=== PATIENT | male | born 1990 | race Caucasian/White ===

== ENCOUNTER 2022-03-29 14:51 | Emergency (ER) | payer MEDICAID, SELFPAY ==
--- NOTE | ~2022-03-29 | US_ITS ---
US/US venous duplex LE IMPRESSION: No DVT demonstrated in the bilateral lower extremities. EXAMINATION: US VENOUS ULTRASOUND WITH DOPPLER LOWER EXTREMITY, BILATERAL CLINICAL INFORMATION: Swelling COMPARISON: None TECHNIQUE: Ultrasound of the deep veins is performed from the hip to the calf with compression sonography and color and pulse Doppler assessment. Spectral analysis with color-flow imaging is performed. FINDINGS: RIGHT: There is normal venous compression and respiratory variation and augmented flow. The visualized common femoral vein, superficial femoral vein, profunda femoral vein, popliteal vein, and the trifurcation region shows no evidence of deep venous thrombosis. There is no significant popliteal fossa cyst. LEFT: There is normal venous compression and respiratory variation and augmented flow. The visualized common femoral vein, superficial femoral vein, profunda femoral vein, popliteal vein, and the trifurcation region shows no evidence of deep venous thrombosis. There is no significant popliteal fossa cyst. If the patient's symptoms persist, followup ultrasound in 5 days 7 days might be of value to exclude proximal propagation from a non-visualized calf vein.
[2022-03-29 15:21] VITALS: BP 138/72; PULSE 70; RESP 18; TEMP 37.2; O2SAT 97; BMI 24.2
[2022-03-29 18:20] LABS: MANUAL DIFF FLAG NO
[2022-03-29 18:21] LABS: Appearance Urine Clear; Color Urine Yellow; Glucose Urine UA Negative (Negative); Leukocyte Esterase Urine Negative (Negative); Nitrite Urine Negative (Negative); PH 6.5 (5.0-8.0); Urine Blood Negative (Negative); Urine Ketones Negative (Negative); Urine Protein Negative (Neg-Trace)
[2022-03-29 18:41] LABS: Alanine Aminotransferase 32 U/L (0-40); Albumin Level 4.1 g/dL (3.5-5.0); Alkaline Phosphatase 94 U/L (39-117); Anion Gap 13 (12-20); Aspartate Amino Transferase 26 U/L (5-37); Bilirubin Total 0.4 mg/dL (0.0-1.0); Blood Urea Nitrogen 18 mg/dL (9-16); Calcium 9.6 mg/dL (8.4-10.2); Carbon Dioxide 31 mmol/L (22-29); Chloride 100 mmol/L (96-108); Creatinine Clr Calc Pharmacy 116.1; Estimated Glomerular Filt Rate > 60; Glucose Random 87 mg/dL (60-115); Sodium 140 mmol/L (135-145)
[2022-03-29 18:47] LABS: B Type Natriuretic Peptide < 10 pg/mL (<100); Basophils Percent Auto 0.4 % (0-2); Eosinophils Absolute Auto 0.1 X10*3/uL (0.0-0.4); Eosinophils Percent Auto 1.7 % (0-4); Hemoglobin 14.1 g/dl (14.0-18.0); Imm Gran Abs Auto 0.04 X10*3/uL (0.00-0.03); Imm Gran Pct Auto 0.6 % (0.0-0.4); Lymphocytes Absolute Auto 2.9 X10*3/uL (1.2-4.9); Lymphocytes Percent Auto 41.6 % (20-40); Mean Corpuscular HGB Conc 34.4 g/dl (31.0-36.0); Mean Corpuscular Hemoglobin 29.8 pg (27.0-33.0); Mean Corpuscular Volume 86.7 fL (80.0-98.0); Mean Platelet Volume 10.1 fL (9.4-12.4); Monocytes Absolute Auto 0.5 X10*3/uL (0.1-1.2); Monocytes Percent Auto 6.4 % (2-11); Neutrophils Absolute Auto 3.5 x10*3/uL (2.0-8.3); Neutrophils Percent Auto 49.3 % (45-73); Platelet Count 163 X10*3/uL (160-400); Red Blood Count 4.73 X10*6/uL (4.60-5.80); Red Cell Distribution Width 13.6 % (11.0-16.0); Troponin-I High Sensitivity 3.8 ng/L (<3.5-35.0)
== END 2022-03-29 19:36 | disposition left against medical advice (07) ==
PROVIDERS: Emergency Provider Emergency Medicine
DX: R60.0 Localized edema (principal); R06.02 Shortness of breath; Z79.899 Other long term (current) drug therapy
CPT/HCPCS: 36415; 80053; 81003; 83880; 84484; 85025; 93970; 99282; 99284

== ENCOUNTER 2022-04-07 10:23 | Emergency (ER) | payer MEDICAID, SELFPAY ==
--- NOTE | ~2022-04-07 | US_ITS ---
EXAMINATION: US VENOUS ULTRASOUND WITH DOPPLER LOWER EXTREMITY, BILATERAL CLINICAL INFORMATION: Lower extremity edema COMPARISON: Previous venous ultrasound most recent 03/29/2022 TECHNIQUE: Ultrasound of the deep veins is performed from the hip to the calf with compression sonography and color and pulse Doppler assessment. Spectral analysis with color-flow imaging is performed. FINDINGS: RIGHT: There is normal venous compression and respiratory variation and augmented flow. The visualized common femoral vein, superficial femoral vein, profunda femoral vein, popliteal vein, and the trifurcation region shows no evidence of deep venous thrombosis. There is no significant popliteal fossa cyst. LEFT: There is normal venous compression and respiratory variation and augmented flow. The visualized common femoral vein, superficial femoral vein, profunda femoral vein, popliteal vein, and the trifurcation region shows no evidence of deep venous thrombosis. There is no significant popliteal fossa cyst. US/US venous duplex LE BI IMPRESSION: No DVT demonstrated in the bilateral lower extremity.
[2022-04-07 10:28] VITALS: BP 115/67; PULSE 61; RESP 18; TEMP 36.8; O2SAT 99; BMI 27.2
--- NOTE | 2022-04-07 14:07 | ED_ITS ---
HPI - Extremity Problem General Chief complaint: Extremity Problem Stated complaint: edema in ankles and feet Time Seen by Provider: 04/07/22 10:33 Source: patient Mode of arrival: ambulatory Limitations: no limitations History of Present Illness HPI Narrative: 31-year-old transgender male to female with a history of substance use disorder on Suboxone, anxiety, constipation, who presents to the ER for evaluation of 6-7 days of lower extremity swelling. He reports the swelling is mostly in his ankles and feet and is worse at the end of the day. He denies any redness, warmth, pain in the back of his legs. He has never had swelling like this before. He reports only new medications are Cymbalta and perphenazine which he has been on for the last month. He denies any injury to his legs. He has been wearing compression stockings and try and elevate his legs with no improvement. He came to the emergency department for the same last week, got lab work done but as of leaving without being seen because the wait was 10 hours per the report. Patient denies recent travel, denies history of blood clots in the past. No chest pain or shortness of breath. MD Complaint: extremity swelling Onset (ago): day(s) (6) Pain Consistency: constant Location: left, right and lower extremity Severity scale (1-10): 4 Quality: aching Radiation: proximal Relieving factors: elevation and other ( compression stockings) Exacerbating factors: other ( being on feet all day) Associated symptoms: denies other symptoms Related Data Allergies Allergy/AdvReac Type Severity Reaction Status Date / Time No Known Allergies Allergy Verified 03/29/22 15:21 Review of Systems Review of Systems: Constitutional: No Fever, No Chills ENT/Mouth: No sore throat, No Rhinorrhea Cardiovascular: No Chest Pain, No SOB, No Orthopnea, +Edema Respiratory: No Cough, No Sputum, No Wheezing, No dyspnea Gastrointestinal: No Nausea, No Vomiting, No Diarrhea, No abdominal Pain Genitourinary: No Dysuria, No Urinary Frequency, No Hematuria Musculoskeletal: No joint pain, No Myalgias Skin: No Skin Lesions, No rash Neuro: No Weakness, No Numbness, No Dizziness, No Headache Psych: + Anxiety/Panic, No Depression Heme/Lymph: No Bruising, No Lymphadenopathy Endocrine: No Polyuria, No Polydipsia PMFSH Past Medical History Medical History (Updated 04/07/22 @ 15:27 by CAR Rose) Alcoholism in recovery Anxiety Depression Migraine Substance abuse in remission Umbilical hernia Social History Social History Alcohol intake: former Patient Tobacco Use Status: Never used Tobacco Use of substances other than those prescribed or required for medical reasons: Yes Substance Use Type: Marijuana Substance Use Frequency: Daily Advance Directives: No Advance Directives Information Provided: No Physical Exam Vital Signs: Vital Signs: Last Vital Signs Temp 98.3 F 04/07/22 15:22 Pulse 56 04/07/22 15:22 Resp 18 04/07/22 15:22 BP 139/75 04/07/22 15:22 Pulse Ox 98 04/07/22 15:22 O2 Del Method 04/07/22 15:22 BMI result Body Mass Index 27.2 Appearance: Alert. Oriented X3. No acute distress. HEENT: normal inspection CVS: Normal heart rate and rhythm. Pulses normal. Respiratory: No respiratory distress. Lungs are clear throughout Skin: Skin warm and dry. Normal skin color. Normal skin turgor. No rashes. Extremities: bilateral ankles and feet with 2+ pitting edema, nontender. No erythema of the lower legs. No calf tenderness. No pretibial edema. Neuro: Oriented X 3. No motor deficit. No sensory deficit. Course Course Course Narrative: 31-year-old transgender male to not yet on hormonal therapy who presents to the ER for evaluation of 6 days of bilateral lower extremity swelling. no calf tenderness or swelling. Swelling is mostly in the ankles and feet. recently had blood work year with a BNP less than 10. Unclear etiology. Will rule out lower extremity DVT with lower extremity Dopplers today. His medication list has been reviewed and does not appear to have any medications that will cause fluid retention or lower extremity edema. Reevaluation(s) Reevaluation #1: Lower extremity Dopplers are unremarkable. No evidence of blood clot. Unclear etiology of his lower extremity edema but he has no worrisome signs or symptoms. he has a follow-up appointment with his primary care doctor next week will res ume. He will follow-up with her. He is stable for discharge home and per her precautions were discussed. Critical Care Time Critical Care Time Critical Care Time: No Discharge Plan Discharge Clinical Impression: Lower extremity edema Patient Disposition: Home, Self-Care Instructions: Leg Edema (ED) Additional Instructions: Lower extremity ultrasound was negative for blood clots. Your lab work last week was unremarkable. Recommend wearing compression stockings and elevating legs when possible. Recommend following up with your primary care doctor. If you develop new or worsening symptoms call 911 or come back to the ER for further evaluation.
[2022-04-07 14:21] VITALS: BP 121/61; PULSE 55; RESP 16; O2SAT 98
--- NOTE | 2022-04-07 15:01 | PC.NURSE ---
pt to radiology
[2022-04-07 15:22] VITALS: BP 139/75; PULSE 56; RESP 18; TEMP 36.8; O2SAT 98
--- NOTE | 2022-04-07 15:25 | PC.NURSE ---
patient a&ox3, vss, pt denies pain at this time, pt has bilateral lower extremity 3+ edema, pt requesting home medications that he doesnt have, call valle within reach, will continue to monitor.
[2022-04-07 17:16] VITALS: BP 137/68; PULSE 88; RESP 16
== END 2022-04-07 17:20 | disposition home or self-care (01) ==
PROVIDERS: Emergency Provider Emergency Medicine
DX: R60.0 Localized edema (principal)
CPT/HCPCS: 93970; 99284

== ENCOUNTER 2022-07-27 09:31 | Emergency (ER) | payer MEDICAID, SELFPAY ==
[2022-07-27 09:55] VITALS: BP 138/81; PULSE 84; RESP 20; TEMP 36.6; O2SAT 98; BMI 28.7
--- NOTE | 2022-07-27 10:12 | ED_ITS ---
HPI - General Adult General Chief complaint: General Medical Stated complaint: medical clearance Time Seen by Provider: 07/27/22 10:12 Source: patient Mode of arrival: ambulatory Limitations: no limitations History of Present Illness HPI narrative: Patient is a 32 year old assigned male at with a history of anxiety presenting to the emergency department today requesting medical clearance. Patient states that he is staying at a retirement and needs medical clearance to go back there. Patient denies any dizziness, lightheadedness, abdominal pain, nausea, vomiting, fever, chills, blurry vision, double vision, loss of vision, chest pain, difficulty breathing, shortness of breath, back pain, night sweats, pain with urination, increased urinary frequency, increased urinary urgency, blood in his urine or stool, syncope or a near syncopal episode, recent trauma or falls, bowel incontinence, bladder incontinence, bowel retention, bladder retention, or any other complaints at this time. Severity: mild Severity scale (1-10): 2 Relieving factors: none Exacerbating factors: none Associated symptoms: denies other symptoms Treatments prior to arrival: none Related Data Allergies Allergy/AdvReac Type Severity Reaction Status Date / Time No Known Allergies Allergy Verified 03/29/22 15:21 Review of Systems Constitutional: Constitutional: Reports no additional constitutional complain ts, Denies chills, Denies fever(s) and Denies night sweats Eyes: Eyes: Reports no additional eye complaints, Denies blurry vision, Denies change in vision, Denies diplopia, Denies eye discharge, Denies loss of vision and Denies eye pain ENT: Denies dizziness Cardiovascular: Cardiovascular: Reports no additional cardiovascular complaints, Denies chest pain, Denies lightheadedness, Denies Loss of Consciousness and Denies dyspnea Respiratory: Respiratory: Reports no additional respiratory complaints and De nies dyspnea Gastrointestinal: Gastrointestinal: Reports no additional gastrointestinal complaints, Denies abdominal pain, Denies melena, Denies hematochezia, Denies change in bowel habits and Denies change in stool character Genitourinary: Genitourinary: Reports no additional male genitourinary complaints, Denies hematuria, Denies oliguria, Denies difficulty urinating, Denies dysuria, Denies urinary frequency, Denies urinary hesitancy, Denies urinary incontinence and Denies urinary urgency Musculoskeletal: Musculoskeletal: Reports no additional musculoskeletal complaints, Denies numbness and Denies tingling Neurologic: Denies dizziness, Denies loss of vision, Denies numbness and Denies tingling Psychiatric: Psychiatric: Reports no additional psychiatric complaints Endocrine: Endocrine: Reports no additional endocrine complaints Hematologic/Lymphatic: Hematologic/Lymphatic: Reports no additional hematologic/lymphatic complaints Allergic/Immunologic: Allergic/Immunologic: Reports no additional allergic/immunologic complaints PMFSH Past Medical History Attestation statement: The following information was validated with the patient. Source: old records reviewed and nursing notes reviewed Medical History Alcoholism in recovery Anxiety Depression Migraine Substance abuse in remission Umbilical hernia Social History Social History Alcohol intake: former Patient Tobacco Use Status: Never used Tobacco Substance Use Type: Marijuana Advance Directives: No Advance Directives Information Provided: No Physical Exam ED Vital Signs: Vital Signs - 24 hr 07/27/22 09:55 07/27/22 10:22 Temperature 97.8 F 98.4 F Pulse Rate 84 73 Respiratory Rate 20 16 Blood Pressure 138/81 117/72 Pulse Oximetry 98 97 Oxygen Delivery Method Room Air Room Air BMI result Body Mass Index 28.7 Const General: cooperative, no acute distress, alert and awake Nutritional Appearance: well nourished Orientation/consciousness: patient oriented x3 Limitations: no limitations HENMT Head: Yes normal to inspection and Yes atraumatic Ears: hearing grossly normal bilaterally and external ears normal General nose exam: Normal external nose present, no nasal discharge noted and no epistaxis Face and sinus: Yes normal facial exam, No abrasion and No laceration Mouth: Normal oral and palatal mucosa present, no drooling and no muffled voice Eyes General: appearance normal, both eyes and all related structures Periorbital: periorbital findings normal Eyelids: Yes eyelids normal Conjunctivae: conjunctivae normal Pupils: Equal, round and reactive pupils present EOM: EOMs intact bilaterally Neck Neck: Yes normal visual inspection, Yes full ROM and Yes no lymphadenopathy Chest Chest palpation & inspection: normal inspection of the chest Resp Effort & Inspection: normal respiratory effort and able to speak in complete sentences Auscultation: clear to auscultation bilaterally Cardio Rate: regular rate Rhythm: regular rhythm GI Inspection: Yes normal to inspection Palpation (GI): Soft to palpation, not firm, nontender and no guarding Neuro General: patient oriented x3 and moves all extremities Cranial nerves: Yes Equal, round and reactive pupils present Cognition (Neuro): normal cognition Motor exam (neuro): 5/5 motor strength present throughout Sensory Exam: Normal double simultaneous stimulation for sensation Coordination: [id number] test normal Extrem General: Yes normal to inspection, Yes full ROM and Yes capillary refill normal Psych Appearance: grossly normal Mental Status: mental status grossly normal Affect: normal affect Attitude: cooperative Thought process: Normal thought process present Thought content: Normal thought content present Insight: Good insight present (Psych) Medical Decision Making Medical Decision Making MDM Narrative: Patient is a 32 year old assigned male at with a history of anxiety presenting to the emergency department today requesting medical clearance. Patient's physical exam was unremarkable. Patient's blood work was unremarkable. I explained my physical exam findings as well as all test results to the patient. I answered all questions asked by the patient. I stressed the importance of the patient taking his medication as prescribed. I stressed the importance of the patient following up with his primary care provider. I stressed the importance of the patient returning to the emergency department immediately if his symptoms were to worsen or if he were to develop any dizziness, shortness of breath, difficulty breathing, chest pain, blurry vision, loss of vision, nausea, vomiting, abdominal pain, fever, chills, back pain, or any other complaints. Patient verbalized agreement and understanding with this treatment plan and discharge. Differential Diagnosis Differential Diagnoses: The differential diagnosis associated with the presentation includes medical clearance Lab Data [facility] Lab Attestation statement: I reviewed the patient's lab results. Result Diagrams: 07/27/22 10:36 07/27/22 10:54 Labs: Lab Results 07/27/22 07/27/22 07/27/22 Range/Units 10:36 10:51 10:54 WBC 6.4 (4.8-10.8) X10*3/uL RBC 5.06 (4.60-5.80) X10*6/uL Hgb 13.2 L (14.0-18.0) g/dl Hct 39.9 L (42.0-52.0) % MCV 78.9 L (80.0-98.0) fL MCH 26.1 L (27.0-33.0) pg MCHC 33.1 (31.0-36.0) g/dl RDW 11.8 (11.0-16.0) % Plt Count 179 (160-400) X10*3/uL MPV 9.6 (9.4-12.4) fL Immature Gran % (Auto) 0.5 H (0.0-0.4) % Neut % (Auto) 56.4 (45-73) % Lymph % (Auto) 34.0 (20-40) % [place] % (Auto) 6.9 (2-11) % Eos % (Auto) 2.0 (0-4) % Baso % (Auto) 0.2 (0-2) % Lymph # (Auto) 2.2 (1.2-4.9) X10*3/uL [place] # (Auto) 0.4 (0.1-1.2) X10*3/uL Eos # (Auto) 0.1 (0.0-0.4) X10*3/uL Baso # (Auto) 0.0 (0.0-0.2) X10*3/uL Abs Immat Gran (auto) 0.03 (0.00-0.03) X10*3/uL Absolute Neuts (auto) 3.6 (2.0-8.3) x10*3/uL Absolute Nucleated RBC 0.000 (0.0-0.012) X10*3/uL Nucleated RBC % (auto) 0.0 (0.0-0.2) /100WBC Sodium (135-145) mmol/L Potassium (3.3-5.1) mmol/L Chloride (96-108) mmol/L Carbon Dioxide (22-29) mmol/L Anion Gap (12-20) BUN (9-16) mg/dL Creatinine (0.5-1.4) mg/dL Estim Creat Clear Calc Estimated GFR Random Glucose (60-115) mg/dL Calcium (8.4-10.2) mg/dL Total Bilirubin (0.0-1.0) mg/dL AST (5-37) U/L ALT (0-40) U/L Alkaline Phosphatase (39-117) U/L Total Protein (6.5-8.0) g/dL Albumin (3.5-5.0) g/dL Urine Color Yellow Urine Appearance Clear Urine pH 7.5 (5.0-9.0) Ur Specific [place] 1.015 (1.005-1.025) Urine Protein Negative (Neg-Trace) mg/dL Urine Glucose (UA) Negative (Negative) mg/dL Urine Ketones Negative (Negative) mg/dL Urine Blood Negative (Negative) Urine Nitrite Negative (Negative) Ur Leukocyte Esterase Negative (Negative) Urine Opiates Screen Not Detected (Not Detect) Urine Fentanyl Screen Not Detected (Not Detect) Ur Barbiturates Screen Not Detected (Not Detect) Ur Phencyclidine Scrn Not Detected (Not Detect) Ur Amphetamines Screen Not Detected (Not Detect) U Benzodiazepines Scrn Not Detected (Not Detect) Urine Cocaine Screen Not Detected (Not Detect) U Marijuana (THC) Screen Not Detected (Not Detect) 07/27/22 Range/Units 10:54 WBC (4.8-10.8) X10*3/uL RBC (4.60-5.80) X10*6/uL Hgb (14.0-18.0) g/dl Hct (42.0-52.0) % MCV (80.0-98.0) fL MCH (27.0-33.0) pg MCHC (31.0-36.0) g/dl RDW (11.0-16.0) % Plt Count (160-400) X10*3/uL MPV (9.4-12.4) fL Immature Gran % (Auto) (0.0-0.4) % Neut % (Auto) (45-73) % Lymph % (Auto) (20-40) % [place] % (Auto) (2-11) % Eos % (Auto) (0-4) % Baso % (Auto) (0-2) % Lymph # (Auto) (1.2-4.9) X10*3/uL [place] # (Auto) (0.1-1.2) X10*3/uL Eos # (Auto) (0.0-0.4) X10*3/uL Baso # (Auto) (0.0-0.2) X10*3/uL Abs Immat Gran (auto) (0.00-0.03) X10*3/uL Absolute Neuts (auto) (2.0-8.3) x10*3/uL Absolute Nucleated RBC (0.0-0.012) X10*3/uL Nucleated RBC % (auto) (0.0-0.2) /100WBC Sodium 137 (135-145) mmol/L Potassium 4.5 (3.3-5.1) mmol/L Chloride 103 (96-108) mmol/L Carbon Dioxide 27 (22-29) mmol/L Anion Gap 12 (12-20) BUN 14 (9-16) mg/dL Creatinine 0.95 (0.5-1.4) mg/dL Estim Creat Clear Calc 127.6 Estimated GFR > 60 Random Glucose 101 (60-115) mg/dL Calcium 9.2 (8.4-10.2) mg/dL Total Bilirubin 0.4 (0.0-1.0) mg/dL AST 17 (5-37) U/L ALT 22 (0-40) U/L Alkaline Phosphatase 93 (39-117) U/L Total Protein 7.0 (6.5-8.0) g/dL Albumin 4.0 (3.5-5.0) g/dL Urine Color Urine Appearance Urine pH (5.0-9.0) Ur Specific [place] (1.005-1.025) Urine Protein (Neg-Trace) mg/dL Urine Glucose (UA) (Negative) mg/dL Urine Ketones (Negative) mg/dL Urine Blood (Negative) Urine Nitrite (Negative) Ur Leukocyte Esterase (Negative) Urine Opiates Screen (Not Detect) Urine Fentanyl Screen (Not Detect) Ur Barbiturates Screen (Not Detect) Ur Phencyclidine Scrn (Not Detect) Ur Amphetamines Screen (Not Detect) U Benzodiazepines Scrn (Not Detect) Urine Cocaine Screen (Not Detect) U Marijuana (THC) Screen (Not Detect) Discharge Plan Discharge Clinical Impression: Encounter for medical clearance for patient hold Patient Disposition: Home, Self-Care Additional Instructions: Follow up with your primary care provider. Return to the emergency department immediately if your symptoms worsen or if you develop any dizziness, shortness of breath, difficulty breathing, chest pain, blurry vision, loss of vision, nausea, vomiting, abdominal pain, fever, chills, back pain, or any other complaints. Referrals: [facility] [place]] (Call to establish and follow up with a primary care provider. If you already have a primary care provider, please follow up with them. ) [facility] [Provider Group] (Call to establish and follow up with a primary care provider. If you already have a primary care provider, please follow up with them. ) [facility] [Provider Group] (Call to establish and follow up with a primary care provider. If you already have a primary care provider, please follow up with them. ) Stand Alone Forms: Work/School Release Interventions: ED Discharge Assessment Last Done: 07/27/22 11:57 Discharge Date/Time: 07/27/22 11:58 Print Language: Latvian
[2022-07-27 10:22] VITALS: BP 117/72; PULSE 73; RESP 16; TEMP 36.9; O2SAT 97
[2022-07-27 10:43] LABS: MANUAL DIFF FLAG NO
[2022-07-27 10:45] LABS: Basophils Percent Auto 0.2 % (0-2); Eosinophils Absolute Auto 0.1 X10*3/uL (0.0-0.4); Hematocrit 39.9 % (42.0-52.0); Hemoglobin 13.2 g/dl (14.0-18.0); Imm Gran Abs Auto 0.03 X10*3/uL (0.00-0.03); Imm Gran Pct Auto 0.5 % (0.0-0.4); Lymphocytes Absolute Auto 2.2 X10*3/uL (1.2-4.9); Mean Corpuscular HGB Conc 33.1 g/dl (31.0-36.0); Mean Corpuscular Hemoglobin 26.1 pg (27.0-33.0); Mean Corpuscular Volume 78.9 fL (80.0-98.0); Mean Platelet Volume 9.6 fL (9.4-12.4); Monocytes Absolute Auto 0.4 X10*3/uL (0.1-1.2); Monocytes Percent Auto 6.9 % (2-11); Neutrophils Absolute Auto 3.6 x10*3/uL (2.0-8.3); Neutrophils Percent Auto 56.4 % (45-73); Platelet Count 179 X10*3/uL (160-400); Red Blood Count 5.06 X10*6/uL (4.60-5.80); Red Cell Distribution Width 11.8 % (11.0-16.0); White Blood Count 6.4 X10*3/uL (4.8-10.8)
[2022-07-27 11:07] LABS: Appearance Urine Clear; Color Urine Yellow; Glucose Urine UA Negative (Negative); Leukocyte Esterase Urine Negative (Negative); Nitrite Urine Negative (Negative); PH 7.5 (5.0-9.0); Specific Gravity - Urine 1.015 (1.005-1.025); Urine Blood Negative (Negative); Urine Ketones Negative (Negative); Urine Protein Negative (Neg-Trace)
[2022-07-27 11:28] LABS: Amphetamine Screen Urine Not Detected (Not Detect); Barbiturates, Urine Not Detected (Not Detect); Benzodiazepines Screen Urine Not Detected (Not Detect); Cannabinoid Screen Urine Not Detected (Not Detect); Cocaine Screen Urine Not Detected (Not Detect); Fentanyl, urine Not Detected (Not Detect); Opiate Screen Urine Not Detected (Not Detect); Phencyclidine Screen Urine Not Detected (Not Detect)
[2022-07-27 11:39] LABS: Alanine Aminotransferase 22 U/L (0-40); Alkaline Phosphatase 93 U/L (39-117); Anion Gap 12 (12-20); Aspartate Amino Transferase 17 U/L (5-37); Bilirubin Total 0.4 mg/dL (0.0-1.0); Blood Urea Nitrogen 14 mg/dL (9-16); Calcium 9.2 mg/dL (8.4-10.2); Carbon Dioxide 27 mmol/L (22-29); Chloride 103 mmol/L (96-108); Creatinine Clr Calc Pharmacy 127.6; Estimated Glomerular Filt Rate > 60; Glucose Random 101 mg/dL (60-115); Potassium 4.5 mmol/L (3.3-5.1); Sodium 137 mmol/L (135-145)
== END 2022-07-27 11:58 | disposition home or self-care (01) ==
PROVIDERS: Physician Assistant Medical; Emergency Provider Emergency Medicine Emergency Medical Services
DX: Z02.2 Encounter for examination for admission to residential institution (principal); F19.11 Other psychoactive substance abuse, in remission; F10.21 Alcohol dependence, in remission; F12.90 Cannabis use, unspecified, uncomplicated
CPT/HCPCS: 36415; 80053; 80307; 81003; 85025; 99283

== ENCOUNTER 2022-10-19 09:38 | Emergency (ER) | payer MEDICAID, SELFPAY ==
--- NOTE | ~2022-10-19 | XR_ITS ---
EXAMINATION: XR CHEST CLINICAL INFORMATION: Lower extremity edema, CHF evaluation COMPARISON: None available. TECHNIQUE: 2 views of the chest were obtained. FINDINGS: No significant abnormality is noted involving the heart, lungs, mediastinum, bony thorax or soft tissues. XR/XR chest 2V IMPRESSION: Unremarkable examination.
--- NOTE | ~2022-10-19 | US_ITS ---
EXAMINATION: US VENOUS ULTRASOUND WITH DOPPLER LOWER EXTREMITY, BILATERAL CLINICAL INFORMATION: Bilateral lower extremity edema. COMPARISON: None available. TECHNIQUE: Ultrasound of the deep veins is performed from the hip to the calf with compression sonography and color and pulse Doppler assessment. Spectral analysis with color-flow imaging is performed. FINDINGS: RIGHT: There is normal venous compression and respiratory variation and augmented flow. The visualized common femoral vein, superficial femoral vein, profunda femoral vein, popliteal vein, and the trifurcation region shows no evidence of deep venous thrombosis. There is no significant popliteal fossa cyst. There are small lymph nodes seen in right groin and proximal thigh with the largest lymph node in the proximal thigh measuring 3.0 cm. There is normal echogenic medulla. LEFT: There is normal venous compression and respiratory variation and augmented flow. The visualized common femoral vein, superficial femoral vein, profunda femoral vein, popliteal vein, and the trifurcation region shows no evidence of deep venous thrombosis. There is no significant popliteal fossa cyst. There are small lymph nodes seen in the left groin and proximal thigh If the patient's symptoms persist, followup ultrasound in 5 days 7 days might be of value to exclude proximal propagation from a non-visualized calf vein. US/US venous duplex LE BI IMPRESSION: No DVT demonstrated in the right lower extremity.
[2022-10-19 09:50] VITALS: PULSE 80; RESP 19; TEMP 36.6; O2SAT 99; BMI 31.6
--- NOTE | 2022-10-19 12:05 | ECG_ITS ---
Test Reason : EDEMA Blood Pressure : / mmHG Vent. Rate : 059 BPM Atrial Rate : 058 BPM P-R Int : 154 ms QRS Dur : 096 ms QT Int : 408 ms P-R-T Axes : 038 037 028 degrees QTc Int : 403 ms Undetermined rhythm Otherwise normal ECG No previous ECGs available Referred By: Shan Emanuel Electronically Signed By:Juan C Mustafa
--- NOTE | 2022-10-19 12:33 | ED.GENADULT ---
HPI - General Adult General Chief complaint: General Medical Stated complaint: Swollen feet Time Seen by Provider: 10/19/22 10:08 Source: patient Mode of arrival: ambulatory Limitations: no limitations History of Present Illness HPI narrative: A 32-year-old male presents with bilateral lower extremity edema. Patient describes symptoms as moderate. There is no pain. There is no clear relieving or exacerbating features. He denies any orthopnea, PND, PERKINS, chest pain, shortness of breath. Patient has had this in the past and had ultrasounds but no other treatment or workup. Patient denies any history of PE or DVT. He has no hypercoagulable known state. No recent trauma, surgeries or travel. There is no prior treatment prior to today symptoms started about 3-4 days ago. Related Data Previous Rx's Medication Instructions Recorded furosemide 40 mg tablet (Lasix) 40 mg PO DAILY #7 tabs 10/19/22 Allergies Allergy/AdvReac Type Severity Reaction Status Date / Time No Known Allergies Allergy Verified 10/19/22 09:50 [facility] Past Medical History Medical History Alcoholism in recovery Anxiety Depression Migraine Substance abuse in remission Umbilical hernia Social History Social History Alcohol intake: former Patient Tobacco Use Status: Never used Tobacco Substance Use Type: Marijuana Advance Directives: No Advance Directives Information Provided: Yes Physical Exam ED Vital Signs: Vital Signs - 24 hr 10/19/22 09:50 10/19/22 14:09 Temperature 98 F Pulse Rate 80 63 Respiratory Rate 19 18 Blood Pressure 106/53 L Pulse Oximetry 99 97 Oxygen Delivery Method Room Air Room Air BMI result Body Mass Index 31.6 GEN: Well developed, no acute distress, alert, oriented HEENT: Normocephalic, atraumatic, normal external ears, nose appears normal, no oropharyngeal edema or exudates Eyes: Normal to appearance Neck: Supple, no lymphadenopathy Respiratory: Talks in complete sentences, no respiratory distress, clear to auscultation bilaterally Cardiovascular: Regular rate and rhythm, no murmurs rubs or gallops Abdomen: Soft, nontender, nondistended, no guarding, no rebound Back: No CVA tenderness Extremities: No clubbing cyanosis 1+ bipedal edema Neurologic: No focal neurologic deficits, cranial nerves 2-12 intact, strength is 5/5 bilaterally, gait normal Skin: No rash Course Course Course Narrative: 32-year-old male presents with bilateral lower extremity edema. There are no additional symptoms differential diagnosis could include hypoalbuminemia, low protein state, DVT dependent edema, venous insufficiency, salt overload, renal dysfunction. Patient will have ultrasound, EKG, chest x-ray is on spironolactone for gender related issues and would consider Lasix but would require close follow-up. Reevaluation(s) Reevaluation #1: Workup is complete. There is no evidence of DVT. He has lower extremity edema likely due to venous insufficiency. Will start patient on Lasix for 1 week and close follow-up with his primary care provider to recheck renal function and electrolytes. Patient has been given instructions also regarding elevating legs as well as compression devices. Time: 14:30 Medical Decision Making Medical Decision Making [facility] Narrative: 32-year-old male presents with bilateral lower extremity edema. There are no additional symptoms differential diagnosis could include hypoalbuminemia, low protein state, DVT dependent edema, venous insufficiency, salt overload, renal dysfunction. Patient will have ultrasound, EKG, chest x-ray is on spironolactone for gender related issues and would consider Lasix but would require close follow-up Differential Diagnosis Differential Diagnoses: The differential diagnosis associated with the presentation includes (Renal dysfunction, hypoalbuminemia, electrolyte abnormality, DVT, S insufficiency) Lower extremity edema Admission/Observation Consideration of admission/observation: Escalation of care including admission/observation considered Lab Data [facility] Lab Attestation statement: I reviewed the patient's lab results. 10/19/22 12:33 10/19/22 12:33 Labs: Lab Results 10/19/22 10/19/22 Range/Units 12:33 12:33 WBC 8.5 (4.8-10.8) X10*3/uL RBC 5.15 (4.60-5.80) X10*6/uL Hgb 12.4 L (14.0-18.0) g/dl Hct 39.3 L (42.0-52.0) % MCV 76.3 L (80.0-98.0) fL MCH 24.1 L (27.0-33.0) pg MCHC 31.6 (31.0-36.0) g/dl RDW 15.1 (11.0-16.0) % Plt Count 207 (160-400) X10*3/uL MPV 9.5 (9.4-12.4) fL Immature Gran % (Auto) 0.7 H (0.0-0.4) % Neut % (Auto) 56.7 (45-73) % Lymph % (Auto) 34.0 (20-40) % [place] % (Auto) 6.7 (2-11) % Eos % (Auto) 1.5 (0-4) % Baso % (Auto) 0.4 (0-2) % Lymph # (Auto) 2.9 (1.2-4.9) X10*3/uL [place] # (Auto) 0.6 (0.1-1.2) X10*3/uL Eos # (Auto) 0.1 (0.0-0.4) X10*3/uL Baso # (Auto) 0.0 (0.0-0.2) X10*3/uL Abs Immat Gran (auto) 0.06 H (0.00-0.03) X10*3/uL Absolute Neuts (auto) 4.8 (2.0-8.3) x10*3/uL Absolute Nucleated RBC 0.000 (0.0-0.012) X10*3/uL Nucleated RBC % (auto) 0.0 (0.0-0.2) /100WBC Sodium 135 (135-145) mmol/L Potassium 4.6 (3.3-5.1) mmol/L Chloride 104 (96-108) mmol/L Carbon Dioxide 27 (22-29) mmol/L Anion Gap 9 L (12-20) BUN 13 (9-16) mg/dL Creatinine 0.82 (0.5-1.4) mg/dL Estim Creat Clear Calc 154.7 Estimated GFR > 60 Random Glucose 85 (60-115) mg/dL Calcium 8.8 (8.4-10.2) mg/dL Total Bilirubin 0.5 (0.0-1.0) mg/dL AST 21 (5-37) U/L ALT 27 (0-40) U/L Alkaline Phosphatase 70 (39-117) U/L Total Protein 6.4 L (6.5-8.0) g/dL Albumin 3.7 (3.5-5.0) g/dL Independent Interpretation I performed an independent interpretation of an: EKG (Sinus bradycardia heart rate 59, nonspecific T-wave changes, no acute ST elevations or depressions, normal intervals) and Ultrasound (No DVT bilateral lower extremities) Radiology Impression Discussion of test interpretation with radiology: I have reviewed the radiologist's reading. Tests considered The following testing was considered but not selected: CT scan Prescription Management I considered prescription management with: Other (Diuretics) Discharge Plan Discharge Clinical Impression: Bilateral edema of lower extremity, Proteins serum plasma low Patient Disposition: Home, Self-Care Instructions: Leg Edema (ED) Additional Instructions: You were evaluated today for lower extremity swelling/edema. Your currently on spironolactone. He will also be placed on furosemide. I recommend taking this medication in the morning. Because urine to diuretics, I am recommending follow-up with her primary care provider for repeat lab testing. Your also noted to have a low protein state which could be due to your eating disorder. This can also be checked on her next lab test. Prescriptions: New furosemide [Lasix] 40 mg tablet 40 mg PO DAILY Qty: 7 0RF Referrals: Physician,None [Primary Care Provider] - 1 week (Primary care for re-evaluation repeat lab testing to make sure electrolytes and kidney function remains stable) Stand Alone Forms: Work/School Release
--- NOTE | 2022-10-19 12:35 | MHC.EDTECH ---
Labs collected and sent to lab
[2022-10-19 12:39] LABS: MANUAL DIFF FLAG NO
[2022-10-19 12:41] LABS: Basophils Percent Auto 0.4 % (0-2); Eosinophils Absolute Auto 0.1 X10*3/uL (0.0-0.4); Eosinophils Percent Auto 1.5 % (0-4); Hematocrit 39.3 % (42.0-52.0); Hemoglobin 12.4 g/dl (14.0-18.0); Imm Gran Abs Auto 0.06 X10*3/uL (0.00-0.03); Imm Gran Pct Auto 0.7 % (0.0-0.4); Lymphocytes Absolute Auto 2.9 X10*3/uL (1.2-4.9); Mean Corpuscular HGB Conc 31.6 g/dl (31.0-36.0); Mean Corpuscular Hemoglobin 24.1 pg (27.0-33.0); Mean Corpuscular Volume 76.3 fL (80.0-98.0); Mean Platelet Volume 9.5 fL (9.4-12.4); Monocytes Absolute Auto 0.6 X10*3/uL (0.1-1.2); Monocytes Percent Auto 6.7 % (2-11); Neutrophils Absolute Auto 4.8 x10*3/uL (2.0-8.3); Neutrophils Percent Auto 56.7 % (45-73); Platelet Count 207 X10*3/uL (160-400); Red Blood Count 5.15 X10*6/uL (4.60-5.80); Red Cell Distribution Width 15.1 % (11.0-16.0); White Blood Count 8.5 X10*3/uL (4.8-10.8)
[2022-10-19 12:59] LABS: Alanine Aminotransferase 27 U/L (0-40); Albumin Level 3.7 g/dL (3.5-5.0); Alkaline Phosphatase 70 U/L (39-117); Anion Gap 9 (12-20); Aspartate Amino Transferase 21 U/L (5-37); Bilirubin Total 0.5 mg/dL (0.0-1.0); Blood Urea Nitrogen 13 mg/dL (9-16); Calcium 8.8 mg/dL (8.4-10.2); Carbon Dioxide 27 mmol/L (22-29); Chloride 104 mmol/L (96-108); Creatinine Clr Calc Pharmacy 154.7; Estimated Glomerular Filt Rate > 60; Glucose Random 85 mg/dL (60-115); Potassium 4.6 mmol/L (3.3-5.1); Sodium 135 mmol/L (135-145); Total Protein 6.4 g/dL (6.5-8.0)
[2022-10-19 14:09] VITALS: BP 106/53; PULSE 63; RESP 18; O2SAT 97
[2022-10-19 15:13] VITALS: BP 129/70; PULSE 76; RESP 14; TEMP 36.8; O2SAT 96
== END 2022-10-19 15:21 | disposition home or self-care (01) ==
PROVIDERS: Emergency Provider Emergency Medicine
DX: R60.0 Localized edema (principal); R77.8 Other specified abnormalities of plasma proteins
CPT/HCPCS: 36415; 71046; 80053; 85025; 93005; 93970; 99284

== ENCOUNTER 2023-08-23 16:35 | Emergency (ER) | payer OTHER, SELFPAY ==
[2023-08-23 17:00] VITALS: BP 118/72; PULSE 92; RESP 20; TEMP 35.9; O2SAT 99; BMI 35.9
--- NOTE | 2023-08-23 17:54 | ED.GENADULT ---
HPI - General Adult General Chief complaint: Skin/Abscess/Foreign Body Stated complaint: scabies Time Seen by Provider: 08/23/23 17:14 Source: patient Mode of arrival: ambulatory Limitations: no limitations History of Present Illness HPI narrative: 33-year-old male from retirement presents to ED for generalized itchiness and bite eliza rash on legs. Patient exposed to confirm case of scabies from retirement. Patient other retirement members also symptomatic. Patient denies any chest pain, shortness of breath, swelling of lips, swollen tongue, drooling, or change in voice. Related Data Previous Rx's Medication Instructions Recorded furosemide 40 mg tablet (Lasix) 40 mg PO DAILY #7 tabs 10/19/22 permethrin 5 % topical cream 1 appl topical Q14D 2 doses #60 08/23/23 grams Allergies Allergy/AdvReac Type Severity Reaction Status Date / Time No Known Allergies Allergy Verified 08/23/23 17:02 Review of Systems Review of Systems: Exposure to scabies, itchiness. Bite on legs Yes all other systems are reviewed and are negative PMFSH Past Medical History Onset Date is defined in the Problem List Problems that require an onset date and time if occurred within 24 hrs of arrival to the ED Aortic Dissection and Rupture; Neurologic impairment; Cardiopulmonary Arrest; Endotracheal Intubation; Insertion or Replacement of Mechanical Circulatory Assist Device Medical History Alcoholism in recovery Anxiety Depression Migraine Substance abuse in remission Umbilical hernia Social History Social History Alcohol intake: former Patient Tobacco Use Status: Never used Tobacco Substance Use Type: Marijuana Advance Directives: No Advance Directives Information Provided: No Physical Exam ED Vital Signs: Vital Signs - 24 hr 08/23/23 17:00 Temperature 96.7 F L Pulse Rate 92 Respiratory Rate 20 Blood Pressure 118/72 Pulse Oximetry 99 Oxygen Delivery Method Room Air BMI result Body Mass Index 35.9 Const General: cooperative, healthy appearing, comfortable, no acute distress, well developed, alert, awake and Physically active Orientation/consciousness: oriented to person, oriented to place and patient oriented x3 HENMT Head: Yes normal to inspection, Yes No palpable skull fracture present, Yes normocephalic and Yes atraumatic Eyes General: appearance normal, both eyes and all related structures Neck Neck: Yes normal visual inspection, Yes full ROM, Yes no lymphadenopathy, Yes no meningeal signs, Yes trachea midline, Yes supple, No anterior neck swelling and No tender Chest Chest palpation & inspection: normal inspection of the chest and normal palpation of entire chest wall Resp Effort & Inspection: normal respiratory effort and able to speak in complete sentences Auscultation: clear to auscultation bilaterally Cardio Jugular venous distension: no JVD Heart sounds: S1 normal heart sound present and S2 normal heart sound present GI Inspection: Yes normal to inspection Palpation (GI): Soft to palpation, not firm, nontender, no guarding and not rigid General: No CVA tenderness and Yes no CVA tenderness Back/Spine/Pelvis Back: no CVA tenderness, No CVA tenderness and No back tenderness Skin General skin exam: no rashes or lesions noted, elasticity normal and turgor normal Neuro General: oriented to person, oriented to place, patient oriented x3, gait normal, tone normal, moves all extremities, Normal light touch and pain sensation, no meningeal signs, no focal motor deficits, CN's II-XI intact bilaterally and normal sensation to monofilament Extrem General: Yes normal to inspection and Yes full ROM Upper/lower leg/hip images: 1. Scabies rash 2. Scabies rash bite nelson Psych Appearance: grossly normal, well kempt and not disheveled Medical Decision Making Medical Decision Making MDM Narrative: 33-year-old male presents to illness and rash on legs patient exposed to confirm case of scabies and retirement. Patient other retirement members also symptomatic. Patient denies any anaphylactic symptoms. Patient comfortable. Patient discharged with permethrin. Differential Diagnosis Differential Diagnoses: The differential diagnosis associated with the presentation includes (Scabies, allergic reaction, bed bug bites, contact dermatitis) Admission/Observation Consideration of admission/observation: Escalation of care including admission/observation considered Independent Historian Clinical information obtained from an independent historian. History obtained from or confirmed by: Other ([facility] staff) External Record Review External record reviewed: Other (Prior visits) Prescription Management I considered prescription management with: Other (Permethrin) Social Determinants Patient?s care significantly limited by Social Determinants of Health including: Other Social Determinant of Health (lives at retirement) Discharge Plan Discharge Clinical Impression: Scabies Patient Disposition: Home, Self-Care Instructions: Scabies (ED) Additional Instructions: Return to the ED for any facial swelling, tongue swelling, lip swelling, sensation of throat closing, shortness of breath, chest pain, fever, chills, worsening rash, or any other concerning symptoms. Please follow-up with the primary care provider Prescriptions: New permethrin 5 % cream 1 appl topical Q14D Qty: 60 0RF Rx Instructions: apply second treatment 14 days after first treatment if live lice remain. Leave on for 8 to 14 hours and than wash by shower or bath. No Action furosemide [Lasix] 40 mg tablet 40 mg PO DAILY Qty: 7 0RF Discharge Date/Time: 08/23/23 19:49
== END 2023-08-23 19:49 | disposition home or self-care (01) ==
PROVIDERS: Emergency Provider Emergency Medicine
DX: B86 Scabies (principal)
CPT/HCPCS: 99281; 99283

== ENCOUNTER 2023-11-22 11:39 | Emergency (ER) | payer OTHER, SELFPAY ==
--- NOTE | 2023-11-22 11:59 | ED_ITS ---
HPI - Skin/Abscess/Foreign Bdy General Stated complaint: scabies Time Seen by Provider: 11/22/23 11:40 Source: patient Mode of arrival: ambulatory Limitations: no limitations History of Present Illness HPI narrative: 33 yo patient with PMH of depression and anxiety here with c/o scabies exposures no lesions wants permethrin complaint: other Onset (ago): day(s) (1) Relieving factors: none Exacerbating factors: none and other Context: none Associated symptoms: denies other symptoms Treatments prior to arrival: none Related Data Previous Rx's ?Medication ?Instructions ?Recorded furosemide 40 mg tablet (Lasix) 40 mg PO DAILY #7 tabs 10/19/22 permethrin 5 % topical cream 1 appl topical Q14D 2 doses #60 08/23/23 grams permethrin 5 % topical cream 1 appl topical Q14D 2 doses #60 11/22/23 grams Allergies Allergy/AdvReac Type Severity Reaction Status Date / Time No Known Allergies Allergy Verified 08/23/23 17:02 Review of Systems Review of Systems: Constitutional : No Fever, No Chills, Cardiovascular : No Chest Pain, No SOB Respiratory : No Dyspnea Gastrointestinal : No abdominal pain Musculoskeletal : No Joint Swelling Skin : No rash, no skin laceration Neuro : No Weakness, No Numbness Psych : No SI/HI PMFSH Past Medical History Attestation statement: The following information was validated with the patient. 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 Oriented X3. No acute distress. Eyes: Pupils equal, round and reactive to light. ENT: Pharynx normal. Neck: Normal inspection. Neck supple. CVS: Pulses normal. Respiratory: No respiratory distress. Abdomen: atraumatic Skin: Skin warm and dry. Normal skin color. Extremities: No lower extremity edema. Neuro: Oriented X 3. No motor deficit. No sensory deficit. Medical Decision Making Medical Decision Making MDM Narrative: 33 yo patient here with scabies exposure asking for permethrin has no lesions and no complaints at this time. Differential Diagnosis Differential Diagnoses: The differential diagnosis associated with the presentation includes scabies exposure External Record Review External record reviewed: Inpatient record Prescription Management I considered prescription management with: Other Discharge Plan Discharge Clinical Impression: Exposure to scabies Patient Disposition: Home, Self-Care Instructions: Scabies (ED) Additional Instructions: return for any worsening symptoms or concerns. Prescriptions: New permethrin 5 % cream 1 appl topical Q14D Qty: 60 0RF Rx Instructions: apply second treatment 14 days after first treatment if live lice remain No Action furosemide [Lasix] 40 mg tablet 40 mg PO DAILY Qty: 7 0RF permethrin 5 % cream 1 appl topical Q14D Qty: 60 0RF Rx Instructions: apply second treatment 14 days after first treatment if live lice remain. Leave on for 8 to 14 hours and than wash by shower or bath. Print Language: Slovenian
[2023-11-22 12:18] VITALS: BP 113/35; PULSE 77; RESP 19; TEMP 36.6; O2SAT 98; BMI 37.3
[2023-11-22 12:55] VITALS: BP 113/35; PULSE 77; RESP 19; TEMP 36.6; O2SAT 98
== END 2023-11-22 12:57 | disposition home or self-care (01) ==
PROVIDERS: Emergency Provider Emergency Medicine
DX: Z20.7 Contact with and (suspected) exposure to pediculosis, acariasis and other infestations (principal)
CPT/HCPCS: 99282; 99283

== ENCOUNTER 2025-08-05 10:40 | Emergency (ER) | payer OTHER, SELFPAY ==
[2025-08-05 10:56] VITALS: BP 148/91; PULSE 87; RESP 18; TEMP 36.6; O2SAT 97; BMI 31.9
--- NOTE | 2025-08-05 10:59 | ED_ITS ---
HPI - Headache General Chief Complaint: Headache Stated Complaint: severe migraines Time Seen by Provider: 08/05/25 12:17 Source: patient Mode of arrival: ambulatory Limitations: no limitations History of Present Illness ED Provider: HAYLIE SEE PA-C HPI Narrative: 35 year old male with pmhx significant for anxiety, depression, migraines, substance abuse and alcohol abuse presents to the ED today for evaluation of migraine headache x1 day. Patient states he currently resides in a rehab program ([facility]) and has not had access to his prescription glasses for a few months. This has been giving him migraines. He was started on sumatriptan which helps however he is only prescribed 9 tabs/ month. He ran out of this 1 week ago. He has been taking Motrin without relief. His last dose was early this morning. Admits to associated photophobia. Reports burred vision however states this is due to him not wearing his corrective lenses. This is not new for him. Denies nausea, vomiting. He is waiting for his glasses to be delivered to the facility. Patient also states that his rehab facility is requesting he have a mental health evaluation . He reports increased fatigue and worsening depression. He cannot pinpoint a trigger for this. He denies SI/HI. Denies etoh consumption or ilicit substance use. He is currently on haldol and cymbalta. No recent medication changes. Related Data Previous Rx's ?Medication ?Instructions ?Recorded furosemide 40 mg tablet (Lasix) 40 mg PO DAILY #7 tabs 10/19/22 permethrin 5 % topical cream 1 appl topical Q14D 2 dos es #60 08/23/23 grams permethrin 5 % topical cream 1 appl topical Q14D 2 dos es #60 18/24 grams permethrin 5 % topical cream 1 appl topical Q14D 2 dos es #60 11/23/24 grams Allergies Allergy/AdvReac Type Severity Reaction Status Date / Time No Known Allergies Allergy Verified 08/05/25 11:01 Review of Systems 2 Review of Systems: Yes all other systems are reviewed and are negative PMFSH Past Medical History Attestation statement: The following information was validated with the patient. 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 Skin: Warm, dry, intact. No rashes or lesions. Head: Normocephalic, atraumatic. EENT: Hearing is intact b/l. Conjunctiva clear. PERRLA. EOM intact. Moist mucous membranes.? Cardiac: Chest wall symmetric. RRR Lungs: Normal respiratory effort without accessory muscle use. CTA bilaterally Abdomen: Soft, non-tender, non-distended. No rebound tenderness or guarding. Positive BS x4. Ext: Upper and lower extremities atraumatic, without tenderness, deformity, swelling or erythema. Full ROM throughout Neuro: AOx3. Normal speech. NIH 0. CN 2-12 grossly intact. Strength 5/5 intact throughout. NV intact distally. Ambulating with steady gait Course Course Course Narrative: This is a Rapid Medical Exam performed in triage by Frannie Nava PA-C. Full HPI, ROS and PE to be performed by primary ED provider. 35 yo M presenting to the ED c/o migraine MEYERS x 1 day with associated blurry vision. Took Motrin without relief. States has been without his prescription glasses x months. Denies nausea, vomiting PE: NAD, nontoxic appearing, no focal deficits, ambulating with steady Plan: Labs, SARs Reevaluation(s) Reevaluation #1: Labs unremarkable. UA without infection. U tox negative. Patient treated with migraine cocktail - reports resolution of MEYERS. no indication for imaging. Care team has met with patient and patient is cleared - recommendation: referral for partial hospitalization program. No SI or psychosis. He is able to return to his current program Discussed with patient who is agreeable with plan. Patient has remained stable throughout ED visit today. Discussed worrisome signs and symptoms and when to return to the ED. All questions answered at this time. Patient is agreeable with disposition and stable for discharge. Medications Administered Discontinued Medications Generic Name Dose Route Start Last Admin Trade Name Janet PRN Reason Stop Dose Admin Diphenhydramine HCl 25 mg 08/05/25 13:03 08/05/25 13:47 Diphenhydramine Hcl 50 Mg/Ml Vial IVPUSH 08/05/25 13:04 25 mg ONCE ONE Administration Ketorolac Tromethamine 15 mg 08/05/25 13:03 08/05/25 13:49 Ketorolac Tromethamine 15 Mg/Ml Vial IVPUSH 08/05/25 13:04 15 mg ONCE ONE Administration Metoclopramide HCl 10 mg 08/05/25 13:03 08/05/25 13:50 Metoclopramide Hcl 10 Mg/2 Ml Vial IVPUSH 08/05/25 13:04 10 mg ONCE ONE Administration Medical Decision Making Medical Decision Making [facility] Narrative: 35 year old male with pmhx significant for anxiety, depression, migraines, substance abuse and alcohol abuse presents to the ED today for evaluation of migraine headache x1 day. Differential diagnosis includes anemia, electrolyte abnormality, dehydration, viral syndrome, migraine vs tension type headache. No headache red flags. Neurologic exam without evidence of meningismus. No focal neurologic findings. Presentation not consistent with acute intracranial bleed including SAH. Presentation not consistent with acute EMPLOYMENT ADJUDICATOR infection including meningitis or brain abscess. Temporal arteritis unlikely, as is acute angle closure glaucoma given history and physical findings. Presentation not consistent with other acute, emergent causes of headache at this time. Plan to treat symptomatically with pain medication. No indication for LP at this time. Plan: will obtain labs/ urine for med clearance, care team eval, and migraine cocktail. Differential Diagnosis Differential Diagnoses: The differential diagnosis associated with the presentation includes as above. Admission/Observation not indicated. Lab Data [facility] Lab Attestation statement: I reviewed the patient's lab results. as above. 08/05/25 11:43 08/05/25 11:43 Labs: Lab Results 08/05/25 08/05/25 08/05/25 Range/Units 11:39 11:43 13:24 WBC 6.1 (4.8-10.8) X10*3/uL RBC 4.67 (4.60-5.80) X10*6/uL Hgb 14.7 (14.0-18.0) g/dl Hct 41.7 L (42.0-52.0) % MCV 89.3 (80.0-98.0) fL MCH 31.5 (27.0-33.0) pg MCHC 35.3 (31.0-36.0) g/dl RDW 12.3 (11.0-16.0) % Plt Count 179 (160-400) X10*3/uL MPV 9.8 (9.4-12.4) fL Immature Gran % (Auto) 0.3 (0.0-0.4) % Neut % (Auto) 58.9 (45-73) % Lymph % (Auto) 32.7 (20-40) % [place] % (Auto) 6.6 (2-11) % Eos % (Auto) 1.0 (0-4) % Baso % (Auto) 0.5 (0-2) % Lymph # (Auto) 2.0 (1.2-4.9) X10*3/uL [place] # (Auto) 0.4 (0.1-1.2) X10*3/uL Eos # (Auto) 0.1 (0.0-0.4) X10*3/uL Baso # (Auto) 0.0 (0.0-0.2) X10*3/uL Abs Immat Gran (auto) 0.02 (0.00-0.03) X10*3/uL Absolute Neuts (auto) 3.6 (2.0-8.3) x10*3/uL Absolute Nucleated RBC 0.000 (0.0-0.012) X10*3/uL Nucleated RBC % (auto) 0.0 (0.0-0.2) /100WBC Sodium 141 (135-145) mmol/L Potassium 4.0 (3.3-5.1) mmol/L Chloride 111 H (96-108) mmol/L Carbon Dioxide 24 (22-29) mmol/L Anion Gap 10 L (12-20) BUN 17 H (9-16) mg/dL Creatinine 0.84 (0.5-1.4) mg/dL Estim Creat Clear Calc 147.5 Estimated GFR > 60 Random Glucose 89 (60-115) mg/dL Calcium 9.4 D (8.4-10.2) mg/dL Total Bilirubin 0.4 (0.0-1.0) mg/dL Direct Bilirubin 0.1 (0.0-0.5) mg/dL AST 17 (5-37) U/L ALT 20 (0-40) U/L Alkaline Phosphatase 69 (39-117) U/L Total Protein 6.7 (6.5-8.0) g/dL Albumin 4.1 (3.5-5.0) g/dL Urine Color Dark Yellow Urine Appearance Clear Urine pH 6.0 (5.0-9.0) Ur Specific [place] 1.025 (1.005-1.025) Urine Protein Negative (Neg-Trace) mg/dL Urine Glucose (UA) Negative (Negative) mg/dL Urine Ketones Trace (Negative) mg/dL Urine Blood Negative (Negative) Urine Nitrite Negative (Negative) Ur Leukocyte Esterase Negative (Negative) Salicylates < 5.0 L (15-30) mg/dL Urine Opiates Screen Not Detected (Not Detect) Ur Buprenorphine Scrn Not Detected (Not Detect) ng/mL Ur Oxycodone Screen Not Detected (Not Detect) ng/mL Urine Methadone Screen Not Detected (Not Detect) ng/mL Urine Fentanyl Screen Not Detected (Not Detect) Acetaminophen < 3 (<30) mcg/mL Ur Barbiturates Screen Not Detected (Not Detect) Ur Phencyclidine Scrn Not Detected (Not Detect) Ur Amphetamines Screen Not Detected (Not Detect) U Benzodiazepines Scrn Not Detected (Not Detect) Urine Cocaine Screen Not Detected (Not Detect) U Marijuana (THC) Screen Not Detected (Not Detect) Ethyl Alcohol < 10 mg/dL Influenza Type A (PCR) NEGATIVE (Negative) Influenza Type B (PCR) NEGATIVE (Negative) RSV RNA Qual (PCR) NEGATIVE (Negative) SARS-CoV-2 RNA (RT-PCR) NEGATIVE (Negative) External Record Review External record reviewed: Inpatient record Prescription Management I considered prescription management with: Pain Medication Chronic Conditions Patient?s care impacted by: Other (migraines) Social Determinants Patient?s care significantly limited by Social Determinants of Health including: Other Social Determinant of Health Critical Care Time Critical Care Time Critical Care Time: No Discharge Plan Discharge Clinical Impression: Migraine, Depression Patient Disposition: Home, Self-Care Instructions: Migraine Headache (ED), Depression (ED) Additional Instructions: Your workup today is reassuring. Your migraine with treated with IV medication today with improvement in symptoms. You were evaluated by our care team today - they are referring you to a partial hospitalization program. You are able to return to your current program at this time. Follow up with your outpatient providers. If you have trouble finding a therapist you can reach out to [place] [phone] [facility] [place] [facility] can be reached 7 days a week 24 hours a day.? Call [phone] to speak with someone.? Return for any worsening symptoms or concerns such as thoughts of self harm or harm to others. Please call 911 if you feel your mental health is worsening.? Prescriptions: No Action furosemide [Lasix] 40 mg tablet 40 mg PO DAILY Qty: 7 0RF permethrin 5 % cream 1 appl topical Q14D Qty: 60 0RF Rx Instructions: apply second treatment 14 days after first treatment if live lice remain permethrin 5 % cream 1 appl topical Q14D Qty: 60 0RF Rx Instructions: apply second treatment 14 days after first treatment if live lice remain permethrin 5 % cream 1 appl topical Q14D Qty: 60 0RF Rx Instructions: apply second treatment 14 days after first treatment if live lice remain. Leave on for 8 to 14 hours and than wash by shower or bath. Referrals: [facility] [Provider Group] Physician,None [Primary Care Provider, Medical] Interventions: ED Discharge Assessment Last Done: 08/05/25 16:03 Discharge Date/Time: 08/05/25 16:03 Print Language: Austrian
[2025-08-05 11:47] LABS: MANUAL DIFF FLAG NO
[2025-08-05 11:49] LABS: Hematocrit 41.7 % (42.0-52.0); Hemoglobin 14.7 g/dl (14.0-18.0); Imm Gran Abs Auto 0.02 X10*3/uL (0.00-0.03); Imm Gran Pct Auto 0.3 % (0.0-0.4); Lymphocytes Absolute Auto 2.0 X10*3/uL (1.2-4.9); Mean Corpuscular HGB Conc 35.3 g/dl (31.0-36.0); Mean Corpuscular Hemoglobin 31.5 pg (27.0-33.0); Mean Corpuscular Volume 89.3 fL (80.0-98.0); NRBC Abs Auto 0.000 X10*3/uL (0.0-0.012); NRBC Pct Auto 0.0 /100WBC (0.0-0.2); Platelet Count 179 X10*3/uL (160-400); Red Blood Count 4.67 X10*6/uL (4.60-5.80); White Blood Count 6.1 X10*3/uL (4.8-10.8)
[2025-08-05 12:05] LABS: Anion Gap 10 (12-20); Blood Urea Nitrogen 17 mg/dL (9-16); Calcium 9.4 mg/dL (8.4-10.2); Carbon Dioxide 24 mmol/L (22-29); Chloride 111 mmol/L (96-108); Creatinine Clr Calc Pharmacy 147.5; Estimated Glomerular Filt Rate > 60; Potassium 4.0 mmol/L (3.3-5.1); Sodium 141 mmol/L (135-145)
[2025-08-05 12:26] LABS: Resp Syncy Virus RNA Qual PCR NEGATIVE (Negative); SARS COV2 PCR INHOUSE NEGATIVE (Negative)
[2025-08-05 12:37] VITALS: BP 101/68; PULSE 73; RESP 16; O2SAT 96
[2025-08-05 13:40] LABS: Appearance Urine Clear; Glucose Urine UA Negative (Negative); PH 6.0 (5.0-9.0); Specific Gravity - Urine 1.025 (1.005-1.025)
[2025-08-05 13:47] LABS: Cannabinoid Screen Urine Not Detected (Not Detect)
[2025-08-05 14:00] LABS: Alanine Aminotransferase 20 U/L (0-40); Albumin Level 4.1 g/dL (3.5-5.0); Alkaline Phosphatase 69 U/L (39-117); Aspartate Amino Transferase 17 U/L (5-37); Total Protein 6.7 g/dL (6.5-8.0)
[2025-08-05 14:06] LABS: Acetaminophen LAB < 3 mcg/mL (<30); Salicylate < 5.0 mg/dL (15-30)
--- OUTSIDE RECORDS SUMMARY | 2025-08-05 14:12 | XMS_ITS ---
Author Organization [employer] Address [address] [place] [address] [address] [place] [address] Care Team Providers Care Registered Nurse Fetal Name Role Phone Adeola Wynn DNP Primary Care Provider [phone] CM Complex Status:Outreach In Progress (Enrolling) Start date:01/13/2025 Case Team Name Relationship Phone Eden Triana RN(Responsible Staff) Registered Nu e [phone] Continued Care and Services Coordination
--- OUTSIDE RECORDS SUMMARY | 2025-08-05 14:12 | XMS_ITS | Encounter Summary ---
Author Organization [employer] Address [address] [place] [address] [address] [place] [address] Care Team Providers Care Wool Spotter Name Role Phone Adeola Wynn AILYN Primary Care Provider [phone] Reason for Visit * Reason Onset Date Comments Update info 2025 Care Coordination 2025 Encounter Details Date Type Department Care Team (Late st Contact Info) Description [address] [address] Anali Coleman MD [address] [place] [id number] Update info; Care Coordination Social History Tobacco Use Types Packs/Day Years Used Date Smoking Tobacco: Never Smokeless Tobacco: Never Alcohol Use Standard Drinks/Week Comments Not Currently 0 (1 standard drink = 0.6 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 Alcohol Answer Date Recorded How often do you have a drink containing alcohol ? 1 10/22/2024 How many drinks containing a lcohol do you have on a typical day when you are drinking? 0 10/22/2024 How often do you have six or more drinks on one occasion? 0 10/22/2024 Depression Answer Date Recorded Patient Health Questionnaire-9 Score 10/22/2024 Patient Health Questionnaire-9 Score 10/22/2024 Last PHQ-9: Questionnaire Data Not on file 0 10/22/2024 Housing Stability Answer Date Recorded What is your housing situation today? I have deborah sorto 10/20/[address] you li ve. Do you have problems with any of the following? None of the above 10/20/2024 Food Insecurity Answer Date Recorded Within the past 12 months, y ou worried that your food would run out before you got money to buy more: Never True 10/20/2024 Within the past 12 months,th e food you bought just didn't last and you didn't have enough money to get more: Never True Transportation Answer Date Recorded In the past 12 months, has l ack of transportation kept you from medical appts, meetings, work or from getting things needed for daily living? Yes, it has kept me from medical appointments or getting medications.;Yes, it has kept me from non-medical meetings, work, or getting things that I need 10/20/2024 Utilities Answer Date Recorded In the past 12 months, has t he electric, gas, oil or water company threatened to shut off services in your home? No 10/20/2024 Depression Answer Date Recorded Patient Health Questionnaire-2 Score 6 10/22/2024 Internet Access Answer Date Recorded Internet Access Q1 Yes 10/20/2024 Internet Access Q2 Not on file 10/20/2024 Sex and Gender Information Value Date Recorded Sex Assigned at Male 06/02/2022 3:54 PM EDT Legal Sex Male 3:54 PM EDT Gender Identity Female 06/02/2022 3:54 PM EDT Sexual Orientation Bisexual 11/16/2023 7: 59 PM EDT Sexual Orientation Lesbian or [place] 11/16/2023 7: 59 PM EDT documented as of this encounter Miscellaneous Notes * Telephone Encounter - Violet Alfaro - 2025 8:48 AM EST Madie from [facility] reports that this patient is discharged from their services. If questions, call Madie [phone] documented in this encounter Plan of Treatment Not on file documented as of this encounter Visit Diagnoses Not on filedocumented in this encounter Additional Health Concerns Assessment Noted Time PHQ-9 Depression Total Score: 19 025 2:54 PM EDT documented as of this encounter Care Teams Wool Spotter Relationship Specialty Start Date End Date Adeola Wynn DNP [address] [place] [address] PCP - General Family Medicine 04/29/25 documented as of this encounter
--- OUTSIDE RECORDS SUMMARY | 2025-08-05 14:12 | XMS_ITS | Encounter Summary ---
Author Organization [employer] Address [address] [place] [address] [address] [place] [address] Care Team Providers Care Power Generation Plant Operator Name Role Phone Anali Coleman MD Primary Care Provider [phone] Carin Sr Unavailable Eden Triana RN Unavailable Edel Houston Unavailable [phone] Eros, Mehnaz Unavailable Eros, Mehnaz Unavailable Heather Mahoney Unavailable Adeola Wynn DNP Primary Care Provider Eros, Mehnaz Unavailable Reason for Visit * Reason Onset Date Comments Care Coordination 10/21/2024 FYI Encounter Details Date Type Department Care Team (Late st Contact Info) Description 10/21/2024 Telephone [facility] [place] [address] Anali Coleman MD [address] [place] [id number] Care Coordination (FYI) Social History Tobacco Use Types Packs/Day Years [...] Answer Date Recorded Patient Health Questionnaire-9 Score 19 10/22/2024 Patient Health Questionnaire-9 Score 19 10/22/2024 Last PHQ-9: Questionnaire Data Not on file 0 10/22/2024 Housing Stability Answer Date Recorded What is your housing situation today? I have deborah noreen 10/20/[address] you li [...] encounter Miscellaneous Notes * Telephone Encounter - Inez Sykes RN - 11/03/2024 10:25 AM EDT Outoing tc to Inez Jay at [facility]. Once connected, RN introduced self and relation to mutual pt. RN confirmed full name of [facility] clinician (Inez Jay) and pt full name/. RN explained reason for calling was to see if [facility] was able to set pt up with outpatient psych prescriber and therapist. [facility] clinican explained that current plan was to discharge pt to [facility] for eating disorder care, and that pt would be unable to see therapist in [facility]. Current plan is for pt to complete self referral for [facility], which should have shorter wait times than [facility]. RN thanked [facility] clinician for time and disconnected from call. * Telephone Encounter - Inez Sykes RN - 10/29/2024 12:33 PM EDT LVMx4 * Telephone Encounter - Inez Gomez RN - 10/28/2024 10:41 AM EDT LVM x3 with direct line and medical call line numbers provided in for call- back to touch base with a member of [facility]'s care team. Inez Gomez RN at 10:42 AM on 10/28/24. * Telephone Encounter - Inez Gomez RN - 10/24/2024 9:44 AM EDT Message from PCP MD [place]: Hi all, Thank you for coordinating! I mainly want to make sure [facility] has a current Psychiatrist (orprescriber) and Therapist to follow with (with some urgency given recent psychiatric hospitalization) - can we make sure [facility] is providing that, and if not establish with [facility]? LVM x2 to Inez Jay of [facility] with direct line and medical call line provided for call-back to discuss mutual client. Inez Gomez RN at 9:49 AM on 10/24/24. * Telephone Encounter - Naomi Menjivar LCSW - 10/22/2024 10:57 AM EDT Hi! Awesome, thank you for updating me! I will reach out and let them know we can reschedule. Thanks :) Naomi * Telephone Encounter - Inez Gmoez RN - 10/22/2024 10:43 AM EDT RN return call to Inezchristopher Jay of [facility] at the phone number provided in this encounter([phone]) but unable to connect on this phone call attempt. VM did self identify intended contact so RN CATINAM x1 introducing self and relation to patient's PCP care team here at [facility]. Requesting more information on behalf of PCP and provided direct line and medical call line for call-back. Inez Gomez RN at 10:51 AM on 10/22/24. * Telephone Encounter - Annmarie Reyes - 10/21/2024 9:57 AM EDT Caller stated that pt has started their partial program today 10/21/24. documented in this encounter Plan of Treatment Not on file documented as of this encounter Visit Diagnoses Not on filedocumented in this encounter Additional Health Concerns Assessment Noted Time PHQ-9 Depression Total Score: 17 025 4:57 PM EST documented as of this encounter Care Teams Power Generation Plant Operator Relationship Specialty Start Date End Date Anali Coleman MD [address] [place] [address] PCP - General Family Medicine 04/18/24 04/28/25 Adeola Wynn DNP [address] [place] [id number] PCP - General Family Medicine 04/29/25 Carin Sr [facility] 12/26/24 04/28/25 Eden Triana, MARIAN Registered Nurse Family Medicine 01/13/25 04/28/25 Edel Houston, [facility] 02/12/25 05/04/25 Mehnaz Cooney 02/13/25 03/31/25 Mehnaz Cooney 04/17/25 04/29/25 Heather Mahoney Wheel Cutter 04/29/25 05/05/25 Mehnaz Cooney 05/05/25 05/06/25 documented as of this encounter
--- OUTSIDE RECORDS SUMMARY | 2025-08-05 14:12 | XMS_ITS | Clinical Summary ---
Author Organization [facility] Address [address] [place] [address] Phone Care Team Providers Care Fruit Distributor Name Role Phone Physician, Pcp Unknown Primary Care Provider Zuleika vailable Encounters Date Type Department Care Team Description 06/10/2025 11:10 AM EST Lab Draw Station - [address] [address] Posttraumatic stress disorde r (Primary Dx); Depressive type psychosis; Amphetamine dependence, in remission (CMS/HCC V24, CMS/HCC V28); Screening for human immunodeficiency virus from Last 3 Months Social History Tobacco Use Types Packs/Day Years Used Date Smoking Tobacco: Never Assessed Sex and Gender Information Value Date Recorded Sex Assigned at Not on file Legal Sex Male 1:59 AM EST Gender Identity Not on file Sexual Orientation Not on file Plan of Treatment Health Maintenance Due Date Last Done Comments Hepatitis A Vaccines (1 of 2 - Risk 2-dose series) 2010 Hepatitis B Vaccines (2 of 3 - 19+ 3-dose series) 03/18/2018 02/18/2018 HPV Vaccines (1 - 3-dose SCDM series) 2018 Depression Screening 08/06/2024 COVID-19 Vaccine ( season) 2025 09/24/2024, 07/06/2022, 09/03/2020, Additional history exists Influenza Vaccine (#1) 2025 09/24/2024 Cholesterol Screening (Lipid Panel) 06/10/2025 Social Influencers of Health Screening 06/10/2025 Hypertension/CHF/CAD Annual BMP Blood Test 06/10/2026 06/10/2025 DTaP,Tdap,and Td Vaccines (2 - Td or Tdap) 09/24/2034 09/24/2024 RSV Immunization Adult Patients (1 - 1-dose 75+ series) 2066 HIV Screening Completed 06/10/2025 Hepatitis C Screening Completed 06/10/2025 HIB Vaccines Aged Out No longer eligi ble based on patient's age to complete this topic IPV Vaccines Aged Out No longer eligi ble based on patient's age to complete this topic MMR Vaccines Aged Out No longer eligi ble based on patient's age to complete this topic Meningococcal ACWY Vaccine Aged Out N o longer eligible based on patient's age to complete this topic Meningococcal B Vaccine Aged Out No l onger eligible based on patient's age to complete this topic Pneumococcal Vaccine: Pediatrics (0 to 5 Years) and At-Risk Patients (6 to 49 Years) Aged Out No longer eligible based on patient's age to complete this topic RSV Immunization Patients Under 20 months Aged Out No longer eligible based on patient's age to complete this topic Varicella Vaccines Aged Out No longer eligible based on patient's age to complete this topic Procedures Procedure Name Priority Date/Time Associated Diagnosis Comments BILIRUBIN DUPLICATE PROCEDURE TO ORDER Routine 06/10/2025 11:27 AM EST Posttraumatic stress disorder Depressive type psychosis Amphetamine dependence, in remission ([facility] V24, [facility] V28) Screening for human immunodeficiency virus HIV 1, 2 ANTIBODY, P24 ANTIGEN WITH REFLEX TO DIFFERENTIATION Routine 06/10/2025 11:27 AM EST Posttraumatic stress disorder Depressive type psychosis Amphetamine dependence, in remission ([facility] V24, [facility] V28) Screening for human immunodeficiency virus COMPLETE BLOOD COUNT Routine 06/10/2025 11:27 AM EST Posttraumatic stress disorder Depressive type psychosis Amphetamine dependence, in remission ([facility] V24, [facility] V28) Screening for human immunodeficiency virus THYROID STIMULATING HORMONE WITH REFLEX TO FREE T4 AND FREE T3 Routine 06/10/2025 11:27 AM EST Posttraumatic stress disorder Depressive type psychosis Amphetamine dependence, in remission ([facility] V24, [facility] V28) Screening for human immunodeficiency virus HEPATITIS PANEL, ACUTE WITH REFLEX TO CONFIRMATION Routine 06/10/2025 11:27 AM EST Posttraumatic stress disorder Depressive type psychosis Amphetamine dependence, in remission ([facility] V24, [facility] V28) Screening for human immunodeficiency virus COMPREHENSIVE METABOLIC PANEL Routine 06/10/2025 11:27 AM EST Posttraumatic stress disorder Depressive type psychosis Amphetamine dependence, in remission ([facility] V24, [facility] V28) Screening for human immunodeficiency virus from Last 3 Months Results * Bilirubin duplicate procedure to order (06/10/2025 11:27 AM EST) Total Bilirubin 0.8 0.0 - 1.4 mg/dL LAB CHEMISTRY METHOD 06/10/2025 2:35 PM EST [facility] Bilirubin, Direct 0.2 0.0 - 0.3 mg/dL LAB CHEMISTRY METHOD 06/10/2025 2:35 PM EST [facility] Bilirubin, Indirect 0.6 0.0 - 1.1 mg/dL LAB CHEMISTRY METHOD 06/10/2025 2:35 PM EST [facility] Blood Venous blood specimen / Unknown Venipuncture / Unknown 06/10/2025 11:27 AM EST 06/10/2025 11:27 AM EST us Inez YOON LAB BLOOD ORDERABLES Final Resu lt [facility] [address] [place] [address], * HIV 1,2 antibody, p24 antigen with reflex to differentiation (06/10/2025 11:27 AM EST) Pathologist [facility] HIV Combo AB/AG Negative Negative LAB CHEMISTRY METHOD 06/10/2025 3:55 PM EST [facility] Blood Venous blood specimen / Unknown Venipuncture / Unknown 06/10/2025 11:27 AM EST 06/10/2025 11:27 AM EST Narrative [facility] - 06/10/2025 3:55 PM EST This assay is a 4th generation assay allowing for earlier detection of HIV infection by detecting the presence of the HIV-1 p24 antigen as well as the traditional antibodies to HIV type 1 (including group O) and type 2. Use of a 4th generation assay is the current CDC recommendation for HIV screening. Inez YOON LAB BLOOD ORDERABLES Final Resu lt Performing Organization Address [facility]/ZIP Co de Phone Number [facility] [address] [place] [address], [place] [phone] * Thyroid stimulating hormone with reflex to free t4 and free t3 (06/10/2025 11:27 AM EST) TSH 1.47 0.40 - 4.00 mcIU/mL LAB CHEMISTRY METHOD 06/10/2025 4:55 PM EST [facility] Blood Venous blood specimen / Unknown Venipuncture / Unknown 06/10/2025 11:27 AM EST 06/10/2025 11:27 AM EST Inez YOON LAB BLOOD ORDERABLES Final Resu lt Performing Organization Address [facility] de Phone Number [facility] [address] [place] [address], [place] [phone] * Hepatitis panel, acute with reflex to confirmation (06/10/2025 11:27 AM EST) Pathologist [facility] Hepatitis B Surface Ag Negative Negative LAB CHEMISTRY METHOD 06/10/2025 3:56 PM EST [facility] Hepatitis A Antibody IgM Negative Negative LAB CHEMISTRY METHOD 06/10/2025 3:56 PM [facility] Hep B Core IgM Negative Negative LAB CHEMISTRY METHOD 06/10/2025 3:56 PM EST [facility] Hepatitis C Antibody Negative Negative LAB CHEMISTRY METHOD 06/10/2025 3:56 PM [facility] Blood Venous blood specimen / Unknown Venipuncture / Unknown 06/10/2025 11:27 AM EST 06/10/2025 11:27 AM EST us Inez YOON LAB BLOOD ORDERABLES Final Resu lt [facility] [address] [place] [address], [place] [phone] * (ABNORMAL) Complete blood count (06/10/2025 11:27 AM EST) WBC 8.7 4.8 - 10.8 K/mcL LAB HEMETOLOGY METHOD 06/10/2025 2:27 PM [facility] RBC 5.20 4.50 - 5.50 M/mcL LAB HEMETOLOGY METHOD 06/10/2025 2:27 PM [facility] Hemoglobin 16.1 13.5 - 17.5 g/dL LAB HEMETOLOGY METHOD 06/10/2025 2:27 PM [facility] Hematocrit 45.7 42.0 - 54.0 % LAB HEMETOLOGY METHOD 06/10/2025 2:27 PM [facility] MCV 87.9 79.0 - 98.0 FL LAB HEMETOLOGY METHOD 06/10/2025 2:27 PM [facility] MCH 31.0 27.0 - 32.0 pcg LAB HEMETOLOGY METHOD 06/10/2025 2:27 PM [facility] MCHC 35.2 32.0 - 37.0 g/dL LAB HEMETOLOGY METHOD 06/10/2025 2:27 PM [facility] RDW 12.6 11.0 - 15.0 % LAB HEMETOLOGY METHOD 06/10/2025 2:27 PM [facility] Platelets 205 130 - 400 K/mcL LAB HEMETOLOGY METHOD 06/10/2025 2:27 PM [facility] MPV 11.4(H) 7.0 - 11.0 FL LAB HEMETOLOGY METHOD 06/10/2025 2:27 PM [facility] NRBC 0.0 <1.0 % LAB HEMETOLOGY METHOD 06/10/2025 2:27 PM EST [facility] NRBC Absolute 0.00 <0.10 K/mcL LAB HEMETOLOGY METHOD 06/10/2025 2:27 PM [facility] Blood Venous blood specimen / Unknown Venipuncture / Unknown 06/10/2025 11:27 AM EST 06/10/2025 11:27 AM EST us Inez YOON LAB BLOOD ORDERABLES Final Resu lt [facility] [address] [place] [address], [place] [phone] * Comprehensive metabolic panel (06/10/2025 11:27 AM EST) Sodium 135 133 - 145 mmol/L LAB CHEMISTRY METHOD 06/10/2025 2:35 PM [facility] Potassium 3.9 3.5 - 5.5 mmol/L LAB CHEMISTRY METHOD 06/10/2025 2:35 PM [facility] Chloride 104 96 - 110 mmol/L LAB CHEMISTRY METHOD 06/10/2025 2:35 PM [facility] CO2 26 21 - 32 mmol/L LAB CHEMISTRY METHOD 06/10/2025 2:35 PM [facility] Anion Gap 5 3 - 11 LAB CHEMISTRY METHOD 06/10/2025 2:35 PM [facility] Glucose 92 70 - 100 mg/dL LAB CHEMISTRY METHOD 06/10/2025 2:35 PM [facility] BUN 14 5 - 25 mg/dL LAB CHEMISTRY METHOD 06/10/2025 2:35 PM [facility] Creatinine 1.13 0.70 - 1.30 mg/dL LAB CHEMISTRY METHOD 06/10/2025 2:35 PM EST [facility] eGFR 88 >=60 mL/min/1. 73m2 LAB CHEMISTRY METHOD 06/10/2025 2:35 PM [facility] Comment:Calculation based on the Chronic Kidney Disease Epidemiology Collaboration (CKD-EPI) equation refit without adjustment for race. BUN/Creatinine Ratio 12.4 LAB CHEMISTRY METHOD 06/10/2025 2:35 PM [facility] Calcium 9.5 8.5 - 10.5 mg/dL LAB CHEMISTRY METHOD 06/10/2025 2:35 PM [facility] AST (SGOT) 12 10 - 42 unit/L LAB CHEMISTRY METHOD 06/10/2025 2:35 PM [facility] ALT (SGPT) 25 10 - 60 unit/L LAB CHEMISTRY METHOD 06/10/2025 2:35 PM [facility] Alkaline Phosphatase 76 42 - 121 unit/L LAB CHEMISTRY METHOD 06/10/2025 2:35 PM [facility] Total Protein 7.8 6.0 - 8.0 g/dL LAB CHEMISTRY METHOD 06/10/2025 2:35 PM [facility] Albumin 4.3 3.2 - 5.0 g/dL LAB CHEMISTRY METHOD 06/10/2025 2:35 PM [facility] Total Bilirubin 0.8 0.0 - 1.4 mg/dL LAB CHEMISTRY METHOD 06/10/2025 2:35 PM [facility] Blood Venous blood specimen / Unknown Venipuncture / Unknown 06/10/2025 11:27 AM EST 06/10/2025 11:27 AM EST us Inez YOON LAB BLOOD ORDERABLES Final Resu lt [facility] [address] [place] [address], [place] [phone] from Last 3 Months Insurance MEDICAID - [place] [employer] [facility] MED[place] Care Teams Fruit Distributor Relationship Specialty Start Date End Date Physician, Pcp Unknown PCP - General 06/10/25
--- OUTSIDE RECORDS SUMMARY | 2025-08-05 14:12 | XMS_ITS | Patient Health Record ---
Author Organization [facility] [address] [place] [address] Location Address [address] [place] [address] Phone [phone] Care Team Providers Care Typesetting Supervisor Name Role Phone Clarisse Mota MD Primary Care Provider Unavailabl e Reason For Referral No Information Social History Sex Observation Social History Observation Description Sex Observation Male Problems Problem Type SNOMED Code ICD Code Dates Problem Status W/U Status Risk Notes Problem Migraine without aura, not refractory (119637715) Migraine without aura and without status migrainosus, not intractable (G43.009) Added On:2020 Active confirmed Plan Of Treatment No Information Insurance Providers Payer Name Payer Address Payer Phone Subscriber Number Group Number Insured Name Patient Relationship to Insured Coverage Start Date Coverage End Date [facility] [address] [place] [address] [id number] Self - patient is the insured [facility] [address] [place] [address] [id number] ARLETH ELDRIDGE Self - patient is the insured
--- OUTSIDE RECORDS SUMMARY | 2025-08-05 14:12 | XMS_ITS | Encounter Summary ---
Author Organization [facility] Address [address] [place] [address] [address] [place] [address] Care Team Providers Care Smoke And Flame Specialist Name Role Phone Anali Coleman MD Primary Care Provider [phone] Carin Sr Unavailable Eden Triana RN Unavailable Edel Houston Unavailable Eros, Mehnaz Unavailable Eros, Mehnaz Unavailable Heather Mahoney Unavailable Adeola Wynn DNP Primary Care Provider [phone] Eros, Mehnaz Unavailable Encounter Details Date Type Department Care Team (Late st Contact Info) Description 06/26/2024 Orders Only [address] [address] Anali Coleman MD [address] [place] [address] Social History Tobacco Use Types Packs/Day Years [...] PM EDT documented as of this encounter Plan of Treatment Not on file documented as of this encounter Visit Diagnoses Not on filedocumented in this encounter Care Teams Smoke And Flame Specialist Relationship Specialty Start Date End Date Anali Coleman MD [address] [place] [address] PCP - General Family Medicine 04/18/24 04/28/25 Adeola Wynn DNP [address] [place] [address] PCP - General Family Medicine 04/29/25 Carin Sr Procurement Manager Behavioral Health 12/26/24 04/28/25 Eden Triana, MARIAN Registered Nurse Family Medicine 01/13/25 04/28/25 [facility] Manager Behavior[facility] 02/12/25 05/04/25 Mehnaz Cooney 02/13/25 03/31/25 Mehnaz Cooney 04/17/25 04/29/25 Heather Mahoney Postal Inspector 04/29/25 05/05/25 Mehnaz Cooney 05/05/25 05/06/25 documented as of this encounter
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
--- OUTSIDE RECORDS SUMMARY | 2025-08-05 14:12 | XMS_ITS | Encounter Summary ---
Author Organization [employer] [facility] Address [address] [place] [address] [address] [place] [address] Care Team Providers Care Logistics Account Manager Name Role Phone Anali Coleman MD Primary Care Provider [phone] Carin Sr Unavailable Eden Triana RN Unavailable Edel Houston Unavailable [phone] Eros, Mehnaz Unavailable Eros, Mehnaz Unavailable Heather Mahoney Unavailable Adeola Wynn DNP Primary Care Provider Eros, Mehnaz Unavailable Reason for Visit * Reason Onset Date Comments Care Coordination 10/29/2024 Encounter Details Date Type Department Care Team (Late st Contact Info) Description 10/29/2024 Telephone [facility] [place] [address] Anali Coleman MD [address] [place] [address] Care Coordination Social History Tobacco Use Types [...] encounter Miscellaneous Notes * Telephone Encounter - Milagro Pabloe - 10/29/2024 12:54 PM EDT Pt called returning a missed call from their care team please call pt back. documented in this encounter Plan of Treatment Not on file documented as of this encounter Visit Diagnoses Not on filedocumented in this encounter Additional Health Concerns Assessment Noted Time PHQ-9 Depression Total Score: 19 025 2:54 PM EDT documented as of this encounter Care Teams Logistics Account Manager Relationship Specialty Start Date End Date Anali Coleman MD [address] [place] [address] PCP - General Family Medicine 04/18/24 04/28/25 Adeola Wnyn DNP [address] [place] [address] PCP - General Family Medicine 04/29/25 Carin Sr Insurance Verification Specialist Behavioral Health 12/26/24 04/28/25 Eden Triana, RN Registered Nurse Family Medicine 01/13/25 04/28/25 Edel Houston, [facility] Insurance Verification Specialist Behavioral Health 02/12/25 05/04/25 Mehnaz Cooney 02/13/25 03/31/25 Mehnaz Cooney 04/17/25 04/29/25 Heather Mahoney Internet Project Manager 04/29/25 05/05/25 Mehnaz Cooney 05/05/25 05/06/25 documented as of this encounter
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
--- OUTSIDE RECORDS SUMMARY | 2025-08-05 14:12 | XMS_ITS | Clinical Summary ---
Author Organization [employer] Address [address] [facility] [address] [place] [address] Care Team Providers Care Manager Monitoring Name Role Phone Adeola Wynn AILYN Primary Care Provider [phone] Allergies No known active allergies Medications * This document contains information received from the source organization and may not represent a complete record from that organization. prazosin (Minipress) 2 MG capsuleIndicatio ns:Night terror Take 1 capsule (2 mg) by mouth at bedtime. 30 capsule 11 5 026 Active buPROPion XL (Wellbutrin XL) 300 MG 24 hr tabletIndication s:Severe episode of recurrent major depressive disorder, without psychotic features (CMS/HCC) (HCC) Take 1 tablet (300 mg) by mouth Once per day. Do not crush, chew, or split. 30 tablet 1 5 Active ARIPiprazole (Abilify) 10 MG tabletIndication s:Mood disorder (CMS/HCC) Take 1 tablet (10 mg) by mouth Once per day. 30 tablet 5 Active ALPRAZolam (Xanax) 1 MG tabletIndication s:Anxiety due to invasive procedure Take 1 tablet (1 mg) by mouth if needed for anxiety (pre-procedure, can repeat half to one tablet 30-60 minutes after initial dose if needed). 2 tablet 5 Active amLODIPine (Norvasc) 10 MG tabletIndication s:Primary hypertension Take 1 tablet (10 mg) by mouth Once per day. 30 tablet 1 5 Active DULoxetine (Cymbalta) [address] capsuleIndicatio ns:Severe episode of recurrent major depressive disorder, without psychotic features (CMS/HCC) (HCC) Take 1 capsule (60 mg) by mouth Once per day. Do not crush or chew. 30 capsule 1 5 Active emtricitabine-te nofovir AF (Descovy) 200-25 MG tabletIndication s:Pre-Exposure Prophylaxis of HIV Take 1 tablet by mouth Once per day. 30 tablet 1 5 Active Multiple Vitamin (multivitamin) tabletIndication s:Eating disorder, unspecified type Take 1 tablet by mouth Once per day. 30 tablet 1 5 Active traZODone (Desyrel) 100 MG tabletIndication s:Primary insomnia Take 1 tablet (100 mg) by mouth at bedtime. 30 tablet 1 5 Active ondansetron (Zofran) 4 MG tabletIndication s:Nausea and vomiting, unspecified vomiting type TAKE 1 TABLET BY MOUTH EVERY DAY NEEDED FOR NAUSEA OR VOMITING 20 tablet 5 Active benztropine (Cogentin) 1 MG tablet TAKE 1 TABLET BY MOUTH TWICE A DAY 60 tablet 5 Active cloNIDine (Catapres) 0.1 MG tablet as needed; TAKE 1 TABLET BY MOUTH FOUR TIMES A DAY NEEDED ANXIETY, DOSES MUST BE 6 HOURS APART 120 tablet 5 Active docusate sodium (Colace) 100 MG capsule TAKE 1 CAPSULE BY MOUTH TWICE A DAY CONSTIPATION 60 capsule 5 Active haloperidol (Haldol) 10 MG tablet TAKE 1 TABLET BY MOUTH TWICE A DAY 60 tablet 5 Active lactulose (Chronulac) 10 GM/15ML solution TAKE 10 GM/15 ML BY MOUTH TWICE A DAY CONSTIPATION 946 mL 5 Active methocarbamol (Robaxin) 500 MG tablet as needed; TAKE 1 TABLET BY MOUTH THREE TIMES A DAY NEEDED FOR MUSCLE SPASMS 90 tablet 5 Active naproxen (Naprosyn) 500 MG tablet TAKE 1 TABLET BY MOUTH TWICE A DAY FLANK PAIN 60 tablet 5 Active Polyethylene Glycol 3350 (PEG 3350) 17 GM/SCOOP powder TAKE 17G MIXED IN 8OZ WATER BY MOUTH EVERY MORNING FOR CONSTIPATION 510 g 5 Active sennosides (Senokot) 8.6 MG tablet TAKE 2 TABLETS BY MOUTH EVERY DAY CONSTIPATION 60 tablet Active Active Problems Problem Noted Date Diagnosed Date Eating disorder 10/21/2024 Assessment & Plan (10/22/2024 3:39 PM EDT): Client reports history of and current restrictive eating disorder. Client notes eating one meal a day and does not feel hungry throughout the day. 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 Reports low mood, feelings of numbness and lack of motivation. Assessment & Plan (10/01/2024 3:50 PM EST): Pt recently discharged from in patient psych stay for the past 2 months following bad mental health crisis - pt was discharged w/ 30 day supply of medication, would like to re-establish and receive new scripts for medication - would like therapy and psychiatry - have found medications helpful - pt on duloxetine, abilify, wellbutrin, prazosin, trazodone - pt just started PHP last Sunday, goes until october 09 - PHQ9 of 17 today, denies any active SI at this time - placing consult for [facility] as well for close f/u w/ pt - encouraged pt to make f/u appt w/ PCP in the next 2-4 weeks - >10 min discussing depressive symptoms, PHQ9 screening and treatment options Encounters Date Type Department Care Team Description 2025 Telephone [facility] [address] [place] [address] Anali Coleman MD Update info; Care Coordination 05/06/2025 Patient Outreach [facility] () Department [address] [place] [id number] Mehnaz Cooney from Last 3 Months Immunizations Immunization Administration Dates Next Due Hep B, adult 02/18/2018 Influenza, seasonal, injecta ble, preservative free 09/24/2024 Moderna Covid-19 Vaccine 12+ 09/24/2024,09/03/19 21,08/05/2020 Pfizer Covid-19 Vaccine 12+ Bivalent 07/06/2022 Smallpox Mpox, Live Attenuat ed, Preservative Free 11/19/2024,10/20/2024 Tdap 09/24/2024 Social History Tobacco Use Types Packs/Day Years Used Date Smoking Tobacco: Never Smokeless Tobacco: Never Tobacco Cessation:Counseling Given: Not Answered Alcohol Use Standard Drinks/Week Comments Not Currently [...] or [place] 11/16/2023 7: 59 PM EDT Last Filed Vital Signs Vital Sign Reading Time Taken Comments Blood Pressure 120/64 11/19/2024 10:54 AM EDT Pulse 66 11/19/2024 10:54 AM EDT Temperature 36.1 C (97 F) 04/30/2025 1:00 PM EDT Respiratory Rate - - Oxygen Saturation 95% 11/19/2024 10:54 AM EDT Inhaled Oxygen Concentration - - Weight 102 kg (224 lb) 11/11/2024 10:05 AM EDT Height - - Body Mass Index - - Plan of Treatment Health Maintenance Due Date Last Done Comments Dental Oral Exam 1991 Dental Prophylaxis 1991 Dental X-Ray: Bitewings 1991 Dental X-Ray: Full Mouth 1991 Lipid Panel 1991 Disability Screening 1991 Family Planning (PISQ) 2006 HPV Vaccines (1 - 3-dose series) 2006 Hepatitis C Screening 2009 COVID-19 Vaccine ( season) 2025 09/24/2024, 07/06/2022, 09/03/2020, Additional history exists Influenza Vaccine (#1) 2025 09/24/2024 Depression Monitoring 04/24/2025 10/22/2024, 025 SDOH Screening 10/20/2025 10/20/2024 Alcohol/Substance Use Screening 10/22/2025 10/22/2024 Tobacco Screening 11/19/2025 11/19/2024 DTaP/Tdap/Td Vaccines (2 - Td or Tdap) 09/24/2034 09/24/2024 Zoster Vaccines (1 of 2) 2041 RSV Patients and Patients Aged 60 years or older (1 - 1-dose 75+ series) 2066 Hepatitis B Vaccines Discontinued 02/18/2018 HIV Screening Completed 10/20/2024, 09/24/2024 HIB Vaccines Aged Out No longer eligi ble based on patient's age to complete this topic Hepatitis A Vaccines Aged Out No long er eligible based on patient's age to complete this topic IPV Vaccines Aged Out No longer eligi ble based on patient's age to complete this topic Meningococcal B Vaccine Aged Out No l onger eligible based on patient's age to complete this topic Meningococcal Vaccine Aged Out No jade benigno eligible based on patient's age to complete this topic Pneumococcal Vaccine: Pediatrics (0 to 5 Years) and At-Risk Patients (6 to 49) Years Aged Out No longer eligible based on patient's age to complete this topic RSV under 20 months Aged Out No longe r eligible based on patient's age to complete this topic Rotavirus Vaccines Aged Out No longer eligible based on patient's age to complete this topic Procedures Procedure Name Priority Date/Time Associated Diagnosis Comments PREP HIV-1/2 ANTIGEN/ANTIBODIES, 4TH GENERATION, RFLX TO Routine 10/20/2024 5:42 PM EDT Possible exposure to HIV from Last 3 Months or Most Recently Relevant to Health Maintenance Results * HIV AB With Reflex confirmation - SCREEN (10/20/2024 5:42 PM EDT) PrEP HIV 1/2 Ag and Ab, Fourth Gen, Screen NON-REAC TIVE NON-REAC TIVE [facility] [employer] [facility] [place] [facility] Comment: HIV-1 antigen and HIV-1/HIV-2 antibodies were not detected. If an HIV exposure-prone event and signs and symptoms of acute HIV are reported within the prior 4 weeks, additional testing with an HIV-1 RNA assay is recommended to determine PrEP eligibility. Please refer to the [place] Public Health Service Preexposure Prophylaxis for the Prevention of HIV infection in the [place]-2020 Update Clinical Practice Guideline for additional information. PLEASE NOTE: This information has been disclosed to you from records whose confidentiality may be protected by state law. If your state requires such protection, then the state law prohibits you from making any further disclosure of the information without the specific written consent of the person to whom it pertains, or as otherwise permitted by law. A general authorization for the release of medical or other information is NOT sufficient for this purpose. Blood Venous blood specimen / Unknown 10/20/2024 5:42 PM EDT 10/20/2024 5:43 PM EDT Narrative [facility] - 10/25/2024 2:53 PM EDT MULTIPLE TESTING PRIORITIES; ROUTINE TESTING TO FOLLOW. Anali Coleman MD LAB BLOOD ORDERABLES Final Result [facility] [address], [place] [address] [facility] [address] [place] [phone] from Last 3 Months or Most Recently Relevant to Health Maintenance Insurance [facility] [phone] Care Teams Manager Monitoring Relationship Specialty Start Date End Date Adeola Wynn DNP [address] [place] [phone] PCP - General Family Medicine 04/29/25
[2025-08-05 14:18] VITALS: BP 116/71; PULSE 68; RESP 16; O2SAT 97
[2025-08-05 16:03] VITALS: BP 116/71; PULSE 68; RESP 16; TEMP 36.6; O2SAT 97
--- NOTE | 2025-08-05 17:24 | MHC.CARE ---
RAD Team completed PHP referral for this pt via email.
== END 2025-08-05 16:03 | disposition home or self-care (01) ==
PROVIDERS: Physician Assistant; Physician Assistant Medical; Emergency Provider Emergency Medicine Emergency Medical Services
DX: G43.909 Migraine, unspecified, not intractable, without status migrainosus (principal); F32.A Depression, unspecified; Z79.899 Other long term (current) drug therapy; Z03.818 Encounter for observation for suspected exposure to other biological agents ruled out
CPT/HCPCS: 36415; 80048; 80076; 80143; 80179; 80307; 81003; 85025; 87637; 96374; 96375; 99284; J1200; J1885; J2765; S9485